=== PATIENT | male | born 1965 | race Caucasian/White ===

== ENCOUNTER 2024-01-19 14:28 | Outpatient (CLI) | payer OTHER, SELFPAY ==
--- NOTE | 2024-01-19 14:30 | ECG_ITS ---
SEE SCANNED COPY FOR CONFIRMED REPORT. MTDD
== END 2024-01-19 14:29 | disposition home or self-care (01) ==
LOC: ANHSURGERY 14:31
PROVIDERS: PCP Family Medicine; Visit Provider Surgery
DX: I25.10 Atherosclerotic heart disease of native coronary artery without angina pectoris (principal); Z72.0 Tobacco use
CPT/HCPCS: 93005

== ENCOUNTER 2024-01-22 00:54 | Day surgery (SDC) | payer OTHER, SELFPAY ==
[2024-01-19 10:35] VITALS: BMI 34.2
--- NOTE | 2024-01-19 10:36 | PC.NURSE ---
Report to the Outpatient Waiting Room, entrance under the green pavilion located off [facility], at time _1000_ on date _[id number]_. Planned Procedure Time: _1200_. Time changes happen often and if your time is changed the preop area will call you the afternoon before. - You and your visitor will be asked to self-screen and do not enter if you have any COVID symptoms. - A mask is optional within the hospital at this time. Patients may have clear liquids (water, carbonated beverages, clear teas, apple juice) until 3 hours prior to surgery with a maximum of 20 ounces. - No food from midnight until time of surgery Take the following medications with a SIP of water the morning of surgery: __None DO NOT STOP ANY OF YOUR OTHER PRESCRIPTION MEDICATIONS PRIOR TO SURGERY ?EXCEPT THE FOLLOWING Medications to discontinue per physician None Date to take last dose Please no make-up, nail kyrgyz, hairspray, perfume, deodorant, or body powder the day of surgery. No jewelry (including any body piercings) or valuables the day of surgery, leave them at home. Please take a shower or bath the night before, or the morning of, surgery with an antibacterial soap. Wear comfortable, loose fitting clothing. - Jewelry must be removed prior to entering the operating room. Rings and piercings that are not removed may be cut off. - The hospital will not accept responsibility for valuables. - Please leave all valuables, including medications, at home the day of surgery. If you are going home after surgery, a licensed commercial front load driver must drive you home. - NO public transportation without another adult if you receive anesthesia. - We recommend that an adult stay with you for 24 hours following discharge. - We also recommend that you do not drive, make important decision, drink alcoholic beverages, or take any drugs that were not prescribed by your health care provider for at least 24 hours after your discharge time. Follow any additional instructions given to you from your surgeon. If you or anyone in your household have experienced Covid symptoms in the past week, please notify your surgeon or the nurse liaison at the phone number below for possible testing. Telephone instructions given to _Melvina__and asked if any additional questions and then verbalized understanding. Patient advised to call surgeon office or pre surgery nurse liaison [phone] if any additional questions.
[2024-01-22] VITALS (8 sets, daily range): BP systolic 114–159; BP diastolic 66–95; PULSE 86–98; RESP 16–20; TEMP 36.1; O2SAT 94–98; BMI 34.1
[2024-01-22] MEDS: LACTATED RINGERS 1,000 ML 30 ML IV CONT ×2 (10:35→13:13)
[2024-01-22] MEDS: ACETAMINOPHEN 500 MG TABLET 1000 MG PO (10:42)
[2024-01-22] MEDS: KETOROLAC 15 MG/ML VIAL (*BKC) IV PUSH (10:43)
--- NOTE | 2024-01-22 11:28 | P.PNAN_ITS ---
Anes - Initial Pre Proc Eval Procedure: Operation Date: 01/22/24 12:00 Proposed Procedures p Open Recurrent Left Inguinal Hernia Repair with Mesh - Ki Jaramillo DO Date/Time: 01/22/24 11:28 Surgeon: Ki Jaramillo DO Pre Op Diagnosis: Recurrent Lt Ing Hernia Patient Data Age: 59 Gender: M Height: 1.73 m Weight: 101.8 kg Last Vital Signs Temp 36.1 C L 01/22/24 10:16 Pulse 98 01/22/24 10:16 Resp 20 01/22/24 10:16 BP 159/91 H 01/22/24 10:16 Pulse Ox 96 01/22/24 10:16 O2 Del Method Room Air 01/22/24 10:16 Allergies Allergy/AdvReac Type Severity Reaction Status Date / Time ciprofloxacin Allergy Severe Hives Verified 01/22/24 10:48 cephalexin Allergy Intermediate Hives Verified 01/22/24 10:48 Home Medications Medication Instructions Recorded Confirmed Type albuterol sulfate 2.5 mg/0.5 mL 2.5 mg inhalation Q20M 12/08/23 01/19/24 History solution for nebulization nitroglycerin 0.4 mg sublingual 0.4 mg sublingual Q5M PRN Chest 12/08/23 12/14/23 History tablet (Nitrostat) Pain atorvastatin 80 mg tablet 80 mg PO DAILY 01/19/24 01/19/24 History Patient hx anesthesia problems: none Family hx anesthesia problems: none Results Review: All pre-operative results and documents have been reviewed as part of the pre- operative evaluation. [facility] Past Medical History Medical History COPD (chronic obstructive pulmonary disease) Heart disease High cholesterol History of [place] (myocardial infarction) Kidney stones Surgical History Surgical History H/O carpal tunnel repair H/O heart artery stent x2 H/O left inguinal hernia repair 2013 [place], [place] H/O umbilical hernia repair Family History Family History Other Cancer Heart disease Social History Social History Smoking packs per day: 1 Smoking cigarettes per day: 20.0 Years smoked: 40 Smoking pack-years: 40.00 Smoking status: Current every day smoker Tobacco type: cigarettes Alcohol intake: never Substance use type: marijuana Other substance usage details: very little, weekend thing. 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 Informed Consent: The patient's anesthetic plan and its attendant risks and benefits were discussed with the patient/family/POA. Questions were solicited and answers provided to the satisfaction of the patient/family/POA.
--- NOTE | 2024-01-22 11:30 | PM.IMHP ---
H&P: HPI History of Present Illness Date/Time: 01/22/24 11:30 Chief Complaint: Recurrent LIH Narrative: Layo presents today for open recurrent left inguinal hernia repair with mesh. He reports no changes since last seen in office. Review of Systems Review of Systems: All systems reviewed & are unremarkable except as noted in HPI and below Constitutional: Constitutional: Denies chills, Denies fever(s), Denies headache(s) and Denies weight loss Eyes: Eyes: Denies change in vision ENT: Denies dizziness, Denies headache(s), Denies neck mass and Denies throat swelling Cardiovascular: Cardiovascular: Denies chest pain, Denies lightheadedness and Denies dyspnea Respiratory: Respiratory: Denies cough, Denies dyspnea and Denies wheezing Gastrointestinal: Gastrointestinal: Denies abdominal pain, Denies change in bowel habits, Denies nausea and Denies vomiting Genitourinary: Genitourinary: Denies hematuria and Denies dysuria Musculoskeletal: Musculoskeletal: Reports as per HPI Integumentary/Breasts: Skin/Breast: Reports as per HPI Neurologic: Denies dizziness and Denies headache(s) Allergic/Immunologic: Allergic/Immunologic: Denies throat swelling and Denies wheezing [facility] Past Medical History Medical History COPD (chronic obstructive pulmonary disease) Heart disease High cholesterol History of [place] (myocardial infarction) Kidney stones Surgical History Surgical History H/O carpal tunnel repair H/O heart artery stent x2 H/O left inguinal hernia repair 2013 [place], [place] H/O umbilical hernia repair Family History Family History Other Cancer Heart disease Social History Social History Smoking packs per day: 1 Smoking cigarettes per day: 20.0 Years smoked: 40 Smoking pack-years: 40.00 Smoking status: Current every day smoker Tobacco type: cigarettes Alcohol intake: never Substance use type: marijuana Other substance usage details: very little, weekend thing. 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 Spiritual care concerns: No Meds Home Medications and Allergies Home Medications Medication Instructions Recorded Confirmed Type albuterol sulfate 2.5 mg/0.5 mL 2.5 mg inhalation Q20M 12/08/23 01/19/24 History solution for nebulization nitroglycerin 0.4 mg sublingual 0.4 mg sublingual Q5M PRN Chest 12/08/23 12/14/23 History tablet (Nitrostat) Pain atorvastatin 80 mg tablet 80 mg PO DAILY 01/19/24 01/19/24 History Allergies Allergy/AdvReac Type Severity Reaction Status Date / Time ciprofloxacin Allergy Severe Hives Verified 01/22/24 10:48 cephalexin Allergy Intermediate Hives Verified 01/22/24 10:48 Vital Signs Vital Signs - 24 hr 01/22/24 10:16 Temperature 36.1 C L Pulse Rate 98 Respiratory Rate 20 Blood Pressure 159/91 H Pulse Oximetry 96 Oxygen Delivery Room Air Exam Const: General: no acute distress and alert Orientation/consciousness: patient oriented x3 HENMT: Head: normocephalic and atraumatic Ears: hearing grossly normal bilaterally Face/Nose/Sinus: Normal nares present Mouth: Yes Normal oral and palatal mucosa present Eyes: Periorbital: periorbital findings normal Sclera: sclerae normal EOM: EOMs intact bilaterally Neck: Neck: normal visual inspection, no lymphadenopathy and trachea midline Chest: Chest palpation & inspection: normal inspection of the chest Resp: Effort & Inspection: normal respiratory effort Auscultation: clear to auscultation bilaterally Cardio: Jugular venous distension: no JVD Rate: regular rate Rhythm: regular rhythm Heart sounds: S1 normal heart sound present and S2 normal heart sound present Peripheral
--- NOTE | 2024-01-22 11:32 | WPDHPUPDATE1 ---
History and Physical Update Update Date/Time: 01/22/24 11:32 History and Physical has been reviewed, including an updated exam of the patient. There are NO changes in the patient's condition. Risks, benefits, and alternatives have been discussed and questions answered. Patient agrees to proceed with procedure.
[2024-01-22] MEDS: CLINDAMYCIN 900 MG/D5W 50 ML 900 MG/50 ML PIGGYBACK 50 MG IVPB (11:55)
[2024-01-22] MEDS: BUPIVACAINE/EPINEPHRINE 0.5% 50 ML VIAL 30 ML INFILTRATE (12:18)
--- NOTE | 2024-01-22 13:14 | W.PM.PROC2 ---
Procedure Note - Detailed Date of Procedure 01/22/24 Pre-op Diagnosis Recurrent left inguinal hernia Post-op Diagnosis Same (Recurrent direct left inguinal hernia) Procedure Performed Open recurrent left inguinal hernia repair with mesh Surgeon Ki Jaramillo, DO Anesthesia General and Local (0.5% bupivacaine with epinephrine) Indications This is a 59-year-old man who presented with a recurrent left inguinal hernia. He has a history of a laparoscopic left inguinal hernia repair in 2013. He had been doing well after this surgery up until a few years ago where he began noticing a recurrent bulge. This was not causing him any symptoms at the time, but over the last couple months he has noticed some increasing pain in the left groin region. A recurrent left inguinal hernia was palpable on exam. Discussions were made with the patient about treatment options and decision was made to proceed with open recurrent left inguinal hernia repair with mesh. Findings Open recurrent left inguinal hernia repair with mesh was performed. The patient was found to have a recurrent direct left inguinal hernia. He was also noted to have a small cord lipoma. The lipoma was excised and the tissue was cleared around the direct inguinal defect. A large Ultrapro hernia system mesh was placed with the internal segment going through the direct defect and laying out deep to the direct defect. The anterior segment of the mesh was placed along the inguinal floor and around the spermatic cord. No other abnormalities were noted. No specimens were obtained for pathology. Description of Procedure Procedure as well as risks, benefits, and alternatives were discussed with the patient. Written consent was obtained and placed in chart prior to procedure. Patient was brought back to surgical suite. He was placed supine on operating table. Time-out was done to confirm patient and procedure. He was then intubated by the anesthesia department. His left lower quadrant and groin region was prepped and draped in sterile fashion using chlorhexidine prep. 0.5% bupivacaine with epinephrine was infiltrated locally around the skin for the incision. A 6 cm oblique incision was made in the left lower quadrant using a 10 blade scalpel. Electrocautery was used for hemostasis and for dissection through Krystal's fascia. The external oblique aponeurosis was then identified and cleared down to the external ring. An incision was then made on the external oblique aponeuroses this was extended down to the external ring. Curved hemostats were placed on the edges of the external oblique aponeurosis and the cord contents were then carefully identified and the spermatic cord was then isolated using a [place] drain. I then carefully inspected the spermatic cord and did not identify a hernia defect going along the cord. There was a cord lipoma that was excised with electrocautery and discarded. I then inspected just medial to this area and identified a direct inguinal defect. The hernia sac was carefully freed up from the surrounding inguinal floor using electrocautery and then the hernia sac was dunked back into the abdominal cavity. I then finger swept underneath this region to clear the peritoneum around the hernia defect. Once this was cleared I was then able to ensure that there was adequate space for mesh placement. I then used an ultra Pro hernia system mesh and placed the internal portion directly through the direct inguinal defect. This was carefully laid out flat deep to the defect. Then oriented the anterior portion of the mesh along the inguinal floor going down towards the pubic bone. The anterior portion of the mesh was then secured at the pubic bone using a 2-0 Prolene simple interrupted suture. Then continued to secure the mesh along the inguinal floor circumferentially using 2-0 Prolene simple interrupted sutures. A slit was cut in the mesh along the lateral segment so that it could be
== END 2024-01-22 15:05 | disposition home or self-care (01) ==
PROVIDERS: PCP Family Medicine; Visit Provider Surgery
PROC: (CPT 49520; principal; 2024-01-22 12:00)
DX: K40.91 Unilateral inguinal hernia, without obstruction or gangrene, recurrent (principal); D17.6 Benign lipomatous neoplasm of spermatic cord; J44.9 Chronic obstructive pulmonary disease, unspecified; I51.9 Heart disease, unspecified; E78.00 Pure hypercholesterolemia, unspecified; I25.2 Old myocardial infarction; Z79.51 Long term (current) use of inhaled steroids; Z95.5 Presence of coronary angioplasty implant and graft; F17.210 Nicotine dependence, cigarettes, uncomplicated; E66.9 Obesity, unspecified; Z68.34 Body mass index [BMI] 34.0-34.9, adult
CPT/HCPCS: 49520; A9270; C1781; J1100; J1885; J2405; J2704; J3010; J7120

== ENCOUNTER 2024-07-05 14:25 | Outpatient (CLI) | payer OTHER, SELFPAY ==
--- NOTE | ~2024-07-05 | CT_ITS ---
EXAMINATION:CT lung screening DATE: 07/05/2024 15:02 INDICATION: Personal history of nicotine dependence. Current smoker with 41 pack year history. TECHNIQUE: Computed tomography (CT) of the chest was performed without intravenous contrast. Automate d exposure control and iterative reconstruction technique were employed. The dose-length product (DLP ) was 220.07 mGy-cm. COMPARISON: None. FINDINGS: There is mild emphysema. A calcified left lung nodule is consistent with old granulomatous disease. There is mild atelectasis bilaterally. No pleural effusion. The heart size is normal. There are coronary artery calcifications. No pericardial effusion. There is mild thoracic spondylosis. Ther e is mild chronic anterior wedging of multiple mid thoracic vertebral bodies. IMPRESSION: 1. Lung-RADS category 1: Negative. Continue annual screening with noncontrast low-dose chest CT in 12 months. Reviewed, dictated and finalized at location A. IMPRESSION: 1. Lung-RADS category 1: Negative. Continue annual screening with noncontrast l ow-dose chest CT in 12 months.
[2024-07-05 15:10] LABS: Basophils Absolute Auto 0.1 K/mm3 (0.0-0.1); Basophils Percent Auto 1.2 % (0.2-1.2); Eosinophils Absolute Auto 0.3 K/mm3 (0-0.3); Eosinophils Percent Auto 3.6 % (0-4.4); Hematocrit 49.8 % (42.0-52.0); Hemoglobin 16.9 g/dL (14.0-18.0); Immature Granulocyte Absolute 0.18 K/mm3 (0.00-0.031); Immature Granulocyte Percent A 1.9 % (0-0.5); Lymphocytes Absolute Auto 2.57 K/mm3 (0.9-3.2); Lymphocytes Percent Auto 27.4 % (18.3-44.2); Mean Corpuscular HGB Conc 33.9 g/dl (32-36); Mean Corpuscular Hemoglobin 30.2 pg (26-34); Mean Corpuscular Volume 89.1 fl (80-100); Mean Platelet Volume 10.4 fl (7.4-10.4); Monocytes Absolute Auto 0.6 K/mm3 (0.1-0.6); Monocytes Percent Auto 5.9 % (2.6-8.5); Neutrophils Absolute Auto 5.6 K/mm3 (1.3-6.7); Platelet Count Result 183 k/mm3 (150-375); Red Blood Count 5.59 M/mm3 (4.6-6.20); Red Cell Distribution Width 14.1 % (11.5-14.5); White Blood Count 9.4 K/mm3 (4.5-10.0)
== END 2024-07-05 14:26 | disposition home or self-care (01) ==
LOC: ANHIMG 14:29
PROVIDERS: PCP Family Medicine; Visit Provider Family Medicine
DX: Z12.2 Encounter for screening for malignant neoplasm of respiratory organs (principal); Z87.891 Personal history of nicotine dependence; R73.09 Other abnormal glucose; R79.89 Other specified abnormal findings of blood chemistry
CPT/HCPCS: 36415; 71271; 83036; 85025

== ENCOUNTER 2025-08-18 16:12 | Emergency (ER) | payer OTHER, SELFPAY ==
[2025-08-18 16:12] VITALS: PULSE 71
--- NOTE | 2025-08-18 16:13 | ECG_ITS ---
Test Date: 2025-08-18 16:17:04 Measurements Intervals [place] Rate: 89 P: 65 AL: 144 QRS: 42 QRSD: 102 T: 68 QT: 332 QTc: 405 Interpretive Statements SINUS RHYTHM ST ELEVATION, CONSIDER INFERIOR INJURY [MARKED ST ELEVATION W/O NORMALLY INFLECTED T-WAVE IN II/aVF] ACUTE MD ABNORMAL ECG No previous ECG available for comparison Electronically Signed On 08-19-2025 08:13:52 MECHANICAL DOOR REPAIRER by Darrel Barker M.D.
--- OUTSIDE RECORDS SUMMARY | 2025-08-18 16:14 | XMS_ITS | Clinical Summary ---
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 Gender Identity Not on file Sexual Orientation Not on file Plan of Treatment Health Maintenance Due Date Last Done Comments Colorectal Cancer Screening Colonoscopy (10 Years) 1967 Annual Physical 1970 Hepatitis C 1985 DTaP, Tdap and Td Vaccines ( 1 - Tdap) 1986 Hepatitis B Vaccines (1 of 3 - 19+ 3-dose series) 1986 Pneumococcal Vaccine: 50+ Years (1 of 1 - PCV) 2017 Zoster Vaccines (1 of 2) 2017 COVID-19 Vaccine (3 - 2024-2 6 season) 2025 01/04/2021, 12/07/2020 Influenza Adult (#1) 2025 06/25/2015, 06/26/2014, 06/29/2013 Hepatitis A Vaccines Aged Out No long er eligible based on patient's age to complete this topic Meningococcal B Vaccine Aged Out No l onger eligible based on patient's age to complete this topic Meningococcal Vaccine Aged Out No attila leslie eligible based on patient's age to complete this topic RSV Immunizations Under 20 Months Aged Out No longer eligible b ased on patient's age to complete this topic Insurance [facility] [place] [address] Care Teams Trauma Doctor Relationship Specialty Start Date End Date Ben Cast MD [address] [place] [phone] PCP - General FAMILY PRACTICE 08/21/23
--- OUTSIDE RECORDS SUMMARY | 2025-08-18 16:14 | XMS_ITS | Clinical Summary ---
Author Organization [facility] [address] Address [address] [place] [address] Care Team Providers Care Instructional Technology Coach Name Role Phone Ben Cast MD Primary Care Provider Allergies Active Allergy Reactions Criticality Noted Date Comments Ciprofloxacin Anaphylaxis High Medications nitroglycerin (NITROSTAT) 0.[address] 1 tablet by sublingual route at the 1st sign of attack; may repeat every 5 min until relief; if pain persists after 3 tablets in 15 min, prompt medical attention is recommended 0 0 7 Active furosemide (LASIX) 20 mg tablet Take 1 tablet (20 mg total) by mouth daily 30 tablet [address] (PROTONIX) 40 mg EC tablet Take 1 tablet (40 mg total) by mouth daily 30 tablet 5 0 Active Additional Information Patient not taking.Reported on 04/25/2022 atorvastatin (LIPITOR) 80 mg tablet Take 1 tablet (80 mg total) by mouth nightly 90 tablet 2 Active albuterol HFA (PROVENTIL HFA,VENTOLIN HFA,PROAIR HFA) 90 mcg/actuation inhaler 2 Active aspirin (Enteric Coated Aspirin) 81 mg enteric coated tabletIndicatio ns:Coronary artery disease involving [place] coronary artery of [place] heart without angina pectoris Take 1 tablet (81 mg total) by mouth daily 2 Active Active Problems Problem Noted Date Diagnosed Date Atypical chest pain 10/27/2018 Tussive syncope 01/28/2018 Nocturnal cough 08/10/2017 Chest pain on exertion 02/05/2017 Overview (02/13/2017): Chest pain on exertion Coronary artery disease of n ative artery of [place] heart with stable angina pectoris 11/12/2016 Overview (01/01/2017): Coronary artery disease involving [place] coronary artery of [place] heart without angina pectoris Essential hypertension 11/12/2016 Overview (01/01/2017): Essential hypertension Tobacco use 11/12/2016 Overview (01/01/2017): Tobacco abuse Erectile dysfunction due to arterial insufficien cy 11/12/2016 Overview (01/01/2017): Erectile dysfunction due to arterial insufficiency Nonsustained ventricular tachycardia 11/12/2016 Overview (01/01/2017): Nonsustained ventricular tachycardia Medical History Medical History Date Comments Myocardial infarction (HCC) Myoc ardial infarction Hypercholesterolemia High choles terol Hypertension Hypertension Family History Medical History Relation Name Comments Other Brother 2 Alive and well; Heart attack Father 2 Myocardial infa rction; Cause of : Myocardial infarction Cancer Mother 2 Cancer, unknown ; Cause of : Cancer, unknown Hyperlipidemia Other Family histor y of Hyperlipidemia; Other Sister 2 Alive and well; Relation Name Status Comments Brother 1 Alive Brother 2 Father 1 (Age 60) Father 2 Mother 1 (Age 59) Mother 2 Other Sister 1 Alive Sister 2 Social History Tobacco Use Types Packs/Day Years Used Date Smoking Tobacco: Heavy Smoker Cigarettes Smokeless Tobacco: Never Comments:Smoking History Pac ks/day: 1 Packs Alcohol Use Standard Drinks/Week Comments No 0 (1 standard drink = 0.6 oz pur e alcohol) Sex and Gender Information Value Date Recorded Sex Assigned at Not on file 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 Gender Identity Not on file Sexual Orientation Not on file Last Filed Vital Signs Vital Sign Reading Time Taken Comments Blood Pressure 134/86 04/25/2022 9:56 AM CDT Pulse 110 04/25/2022 9:56 AM CDT Temperature - - Respiratory Rate - - Oxygen Saturation 94% 04/25/2022 9:56 AM CDT Inhaled Oxygen Concentration - - Weight 97.5 kg (215 lb) 04/25/2022 9:56 AM CDT Height 170.2 cm (5' 7) 04/25/2022 9:56 AM CDT Body Mass Index 33.67 04/25/2022 9:56 AM CDT Plan of Treatment Not on file Insurance [facility] Care Teams Instructional Technology Coach Relationship Specialty Start Date End Date Ben Cast MD PCP - General 12/19/16
[2025-08-18 16:15] VITALS: BP 119/79; PULSE 100; PULSE 71; RESP 16; RESP 20; TEMP 35.5; O2SAT 94; O2SAT 96
[2025-08-18] MEDS: MORPHINE SULFATE (*CRX) 4 MG/ML INJ IV PUSH (16:24)
[2025-08-18] MEDS: ASPIRIN 81 MG CHEWABLE TABLET 324 MG PO (16:24)
[2025-08-18 16:27] VITALS: PULSE 69; RESP 14; O2SAT 95
[2025-08-18 16:30] VITALS: BP 78/58; PULSE 65; RESP 14; O2SAT 95
[2025-08-18 16:31] VITALS: PULSE 61; RESP 12
[2025-08-18 16:32] VITALS: BP 84/63; PULSE 64; RESP 14; O2SAT 94
[2025-08-18] MEDS: SODIUM CHLORIDE 0.9% IV 1,000 ML 999 ML IV CONT (16:35)
[2025-08-18 16:37] LABS: Hematocrit 50.5 % (40.0-54.0); Hemoglobin 17.3 g/dL (14.0-18.0); Immature Granulocyte Percent A 0.3 % (0.0-0.0); Lymphocytes Absolute Auto 4.62 K/mm3 (1.10-4.50); Mean Corpuscular HGB Conc 34.3 g/dL (32-36); Mean Corpuscular Hemoglobin 29.2 pg (27.0-31.0); Mean Corpuscular Volume 85.3 fL (78.0-102.0); Nucleated Red Blood Cells Absolute Auto 0.00 K/mm3 (0.00-0.00); Nucleated Red Blood Cells Perc 0.0 % (0-0.0); Platelet Count Result 201 K/mm3 (150-420); Red Blood Count 5.92 M/mm3 (4.70-6.10); White Blood Count 12.2 K/mm3 (4.8-10.8)
[2025-08-18] MEDS: HEPARIN SOD/D5W 100 UNITS/ML 25,000 UNITS/250 ML BAG 9 UNITS IV CONT (16:39)
[2025-08-18 16:45] LABS: INR 1.0; Partial Thromboplastin Time 27.1 Sec (23.9-30.70); Prothrombin Time 10.6 Seconds (9.50-12.1)
[2025-08-18 16:46] LABS: Alanine Aminotransferase 45 U/L (6-50); Albumin Level 4.6 g/dL (3.5-5.1); Alkaline Phosphatase 76 U/L (38-126); Anion Gap 11 mmol/L (4-12); Aspartate Amino Transferase 48 U/L (17-59); Bilirubin,Total 0.7 mg/dL (0.2-1.3); Blood Urea Nitrogen 19 mg/dL (9-20); Calcium 9.5 mg/dL (8.4-10.2); Carbon Dioxide 25 mmol/L (22-30); Chloride 102 mmol/L (98-107); Estimated CRCL calculation 69 ml/min; Estimated Glomerular Filt Rate > 60; Glucose 125 mg/dL (65-110); Osmolality Calculated 289 mOsm/kg (285-295); Potassium 3.2 mmol/L (3.4-5.0); Sodium 138 mmol/L (137-145); Total Protein 6.8 g/dL (6.3-8.2)
--- NOTE | 2025-08-18 16:47 | ED_ITS ---
HPI - Chest Pain General Chief Complaint: Chest Pain Stated Complaint: chest pain Time Seen by Provider: 08/18/25 16:19 Source: patient and family Mode of arrival: ambulatory Limitations: no limitations History of Present Illness HPI narrative: Patient is a 60-year-old male with chest pain all day today presents to the emergency room towards the end of the day per family request. Patient presents niño-colored and Cruz colored and diaphoretic. Patient was having midsternal pressure. He took 2 nitroglycerin prior to arrival. MD complaint: chest pain, chest heaviness and chest discomfort Pertinent past history: coronary artery disease (Patient has 2 stents 10 years ago with IN), prior IN and other (Hyperlipidemia) Onset (ago): day(s) (1) Timing of current episode: constant Prior episodes: No Onset: during exertion Pain location: substernal and parasternal Pain radiation: none Severity: moderate Pain scale (0-10): 7 Quality: tightness, heaviness and similar to prior IN Relieving factors: nothing Exacerbating factors: exertion Context: other (Patient has coronary artery disease and not taking any medications presents with chest pain and diaphoretic and pale color/niño) Associated symptoms: other (None) Treatment prior to arrival: nitroglycerin (X2 prior to arrival) Risk Factors Coronary artery disease risk factors: smoking history and hyperlipidemia Thoracic aortic dissection risk factors: none Related Data Home Medications ?Medication ?Instructions ?Recorded ?Confirmed ?Last Taken ?Type nitroglycerin 0.4 mg sublingual 0.4 mg sublingual Q5M PRN Chest 12/08/23 08/18/25 08/18/25 History tablet (Nitrostat) Pain Allergies Allergy/AdvReac Type Severity Reaction Status Date / Time ciprofloxacin Allergy Severe Hives Verified 08/18/25 16:38 cephalexin Allergy Intermediate Hives Verified 08/18/25 16:38 Review of Systems 2 Review of Systems: All systems reviewed & are unremarkable except as noted in HPI and below Constitutional: Constitutional: Reports no additional constitutional complaints Eyes: Eyes: Reports no additional eye complaints ENT: Reports system reviewed and no additional complaints, except as documented Cardiovascular: Cardiovascular: Reports no additional cardiovascular complaints Respiratory: Respiratory: Reports no additional respiratory complaints Gastrointestinal: Gastrointestinal: Reports no additional gastrointestinal complaints Genitourinary: Genitourinary: Reports no additional male genitourinary complaints Musculoskeletal: Musculoskeletal: Reports no additional musculoskeletal complaints Integumentary/Breasts: Skin/Breast: Reports system reviewed and no additional complaints, except as docu Neurologic: Reports system reviewed and no additional complaints, except as documented Psychiatric: Psychiatric: Reports no additional psychiatric complaints Endocrine: Endocrine: Reports no additional endocrine complaints Hematologic/Lymphatic: Hematologic/Lymphatic: Reports no additional hematologic/lymphatic complaints Allergic/Immunologic: Allergic/Immunologic: Reports no additional allergic/immunologic complaints PMFSH Past Medical History Medical History COPD (chronic obstructive pulmonary disease) High cholesterol Heart disease History of [place] (myocardial infarction) Kidney stones Surgical History Surgical History H/O heart artery stent x2 H/O carpal tunnel repair H/O umbilical hernia repair H/O left inguinal hernia repair 2013 [place], [place] Open recurrent left inguinal hernia repair with mesh 01/22/24 Family History Family History Other Cancer Heart disease Social History Social History Smoking packs per day: 1 Smoking cigarettes per day: 20.0 Years smoked: 40 Smoking pack-years: 40.00 Smoking status: Current every day smoker Tobacco type: cigarettes Alcohol intake: never Substance use type: marijuana Other substance usage details: very little, weekend thing. 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 Spiritual care concerns: No Exam 2 Const: General: diaphoretic and ill appearing Nutritional Appearance: well nourished Orientation/consciousness: patient oriented x3 Limitations: no limitations HENMT: Head: normal to inspection Ears: external ears normal F jose/Nose/Sinus: Normal external nose present Eyes: Conjunctivae: conjunctivae normal Pupils: Equal, round and reactive pupils present EOM: EOMs intact bilaterally Neck: Neck: normal visual inspection Chest: Chest palpation & inspection: normal inspection of the chest Resp: Effort & Inspection: normal respiratory effort and not labored A uscultation: clear to auscultation bilaterally and no crackles Cardio: Rate: regular rate Rhythm: regular rhythm Heart sounds: no murmurs GI: Inspection: non-distended GI Palp: Yes Soft to palpation and No Tenderness to palpation present (GI) Auscultation: normal bowel sounds : General: Yes bladder normal to palpation Back/Spine/Pelvis: Back: no CVA tenderness Skin: General skin exam: No normal color, no jaundice and pallor Rashes: no rashes Wounds: no wounds Neuro: General: patient oriented x3, moves all extremities and no meningeal signs Extrem: General: normal to inspection Psych: Mental Status: mental status grossly normal Affect: normal affect Attitude: cooperative Course Vital Signs Vital signs: Vital Signs Pulse Rate 71 08/18/25 16:12 Temperature 35.5 C L 08/18/25 16:15 Pulse Rate 71 08/18/25 16:15 Respiratory Rate 20 08/18/25 16:15 Blood Pressure 119/79 08/18/25 16:15 Pulse Oximetry 94 08/18/25 16:15 Oxygen Delivery Nasal Cannula 08/18/25 16:15 Oxygen Flow Rate 2 08/18/25 16:15 MDM - Chest Pain MDM Narrative Medical decision making narrative: Patient is a 60-year-old male with chest pain and heaviness with diaphoresis for the past day. EKG shows STEMI. Inferior STEMI. Patient transferred immediately. [facility]. Discussed with embossing toolsetter. Aspirin heparin started. Morphine given. IV fluid given. Slight hypotension appreciated and EMS will give epinephrine dose pulsing as needed. He will present to ER to ER. Lab Data Attestation: I reviewed the patient's lab results. 08/18/25 16:20 08/18/25 16:20 Labs: Lab Results 08/18/25 08/18/25 Range/Units 16:20 16:41 WBC 12.2 H Pending (4.8-10.8) K/mm3 RBC 5.92 Pending (4.70-6.10) M/mm3 Hgb 17.3 Pending (14.0-18.0) g/dL Hct 50.5 Pending (40.0-54.0) % MCV 85.3 Pending (78.0-102.0) fL MCH 29.2 Pending (27.0-31.0) pg MCHC 34.3 Pending (32-36) g/dL RDW 14.6 H Pending (11.6-14.4) % Plt Count 201 Pending (150-420) K/mm3 MPV 10.6 Pending (8.7-11.0) fl Immature Gran % (Auto) 0.3 H Pending (0.0-0.0) % Neut % (Auto) 47.4 L Pending (50.0-70.0) % Lymph % (Auto) 37.8 Pending (18.0-42.0) % Dewey % (Auto) 7.9 Pending (2.0-11.0) % Eos % (Auto) 5.3 Pending (1.0-6.0) % Baso % (Auto) 1.3 H Pending (0.0-1.0) % Lymph # (Auto) 4.62 H Pending (1.10-4.50) K/mm3 Dewey # (Auto) 0.96 H Pending (0.10-0.90) K/mm3 Eos # (Auto) 0.65 H Pending (0.02-0.50) K/mm3 Baso # (Auto) 0.16 H Pending (0.00-0.10) K/mm3 Abs Immat Gran (auto) 0.04 H Pending (0.00-0.00) K/mm3 Absolute Neuts (auto) 5.78 Pending (1.70-7.20) K/mm3 Absolute Nucleated RBC 0.00 Pending (0.00-0.00) K/mm3 Nucleated RBC % 0.0 Pending (0-0.0) % PT 10.6 (9.50-12.1) Seconds INR 1.0 APTT 27.1 (23.9-30.70) Sec Sodium 138 (137-145) mmol/L Potassium 3.2 L (3.4-5.0) mmol/L Chloride 102 (98-107) mmol/L Carbon Dioxide 25 (22-30) mmol/L Anion Gap 11 (4-12) mmol/L BUN 19 (9-20) mg/dL Creatinine 1.00 (0.7-1.3) mg/dL Estim Creat Clear Calc 69 ml/min Estimated GFR > 60 (59 - ) Glucose 125 H (65-110) mg/dL Calculated Osmolality 289 (285-295) mOsm/kg Calcium 9.5 (8.4-10.2) mg/dL Magnesium Pending Total Bilirubin 0.7 (0.2-1.3) mg/dL AST 48 (17-59) U/L ALT 45 (6-50) U/L Alkaline Phosphatase 76 (38-126) U/L Troponin I Pending NT-Pro-B Natriuret Pep Pending Total Protein 6.8 (6.3-8.2) g/dL Albumin 4.6 (3.5-5.1) g/dL Imaging Data Attestation: I personally reviewed and interpreted this imaging study as follows: Radiologist's impression: Unable to do in period of time ECG Data EKG #1: Attestation: I personally reviewed and interpreted this ECG as follows: ECG completion date: 08/18/25 ECG completion time: 16:54 EKG Interpretation: normal rate, sinus rhythm, no ectopy, ST elevation (Inferior), normal QRS, normal QT and NL axis Critical Care Time Critical Care Time Critical Care Time: Yes Total Critical Care Time: 30 Discharge Plan Discharge Clinical Impression: ST elevation (STEMI) myocardial infarction Qualifiers: Involved coronary artery: unspecified coronary artery Qualified Code(s): I21.3 - ST elevation (STEMI) myocardial infarction of unspecified site Patient Disposition: Acute Care Hospital Condition: Guarded Prognosis Patient Language: Burkinan Prescriptions: No Action nitroglycerin [Nitrostat] 0.4 mg tablet, sublingual 0.4 mg sublingual Q5M PRN (Reason: Chest Pain) Rx Instructions: do not exceed 3 doses per episode Has never used. Follow-up/Referrals: Segun,MD Ben [Primary Care Provider, Family Practice] Time of Disposition: 16:22
[2025-08-18 16:57] LABS: NT Pro B Type Natriuretic Pept < 20 pg/mL (19.9-100); Troponin I < 0.012 ng/mL (0.000-0.034)
[2025-08-18 17:00] LABS: Magnesium 1.8 mg/dL (1.6-2.3)
== END 2025-08-18 16:42 | disposition short-term general hospital (02) ==
PROVIDERS: Emergency Provider Emergency Medicine; PCP Family Medicine
DX: I21.3 ST elevation (STEMI) myocardial infarction of unspecified site (principal); I25.10 Atherosclerotic heart disease of native coronary artery without angina pectoris; I25.2 Old myocardial infarction; E78.5 Hyperlipidemia, unspecified; J44.9 Chronic obstructive pulmonary disease, unspecified; F17.210 Nicotine dependence, cigarettes, uncomplicated
CPT/HCPCS: 36415; 80053; 83735; 83880; 84484; 85025; 85610; 85730; 93005; 96374; 96375; 99285; A9270; J1644; J2270; J7030

== ENCOUNTER 2025-08-18 17:12 | Inpatient (IN) | payer OTHER, SELFPAY ==
[2025-08-18] VITALS (15 sets, daily range): BP systolic 90–128; BP diastolic 51–99; PULSE 79–111; RESP 13–21; TEMP 36.3–36.6; O2SAT 93–97; BMI 28.9
--- OUTSIDE RECORDS SUMMARY | 2025-08-18 17:19 | XMS_ITS | Clinical Summary ---
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
--- OUTSIDE RECORDS SUMMARY | 2025-08-18 17:19 | XMS_ITS | Clinical Summary ---
Author Organization [facility] [address] Address [address] [place] [address] Care Team Providers Care Color Weigher Name Role Phone Ben Cast MD Primary [...] enteric coated tabletIndicatio ns:Coronary artery disease involving [place] coronary artery of [place] heart without angina pectoris Take 1 tablet (81 mg total) by mouth daily 2 Active Active Problems Problem Noted Date Diagnosed Date Atypical chest pain 10/27/2018 Tussive syncope 01/28/2018 Nocturnal cough 08/10/2017 Chest pain on exertion 02/05/2017 Overview (02/13/2017): Chest pain on exertion Coronary artery disease of n ative artery of [place] heart with stable angina pectoris 11/12/2016 Overview (01/01/2017): Coronary artery disease involving [place] tribe coronary artery of [place] tribe heart without angina pectoris Essential hypertension 11/12/2016 [...] on file Legal Sex Male 4:08 PM [employer] Gender Identity Not on file Sexual Orientation [...] Plan of Treatment Not on file Insurance [facility] [place] [phone] Care Teams Color Weigher Relationship Specialty Start Date End Date Ben Cast MD PCP - General 12/19/16
--- NOTE | 2025-08-18 17:22 | WPDMODSED ---
Moderate Sedation Note-Pt Data Patient Data Allergies Allergy/AdvReac Type Severity Reaction Status Date / Time ciprofloxacin Allergy Severe Hives Verified 08/18/25 16:38 cephalexin Allergy Intermediate Hives Verified 08/18/25 16:38 Home Medications ?Medication ?Instructions ?Recorded ?Confirmed ?Type nitroglycerin 0.4 mg sublingual 0.4 mg sublingual Q5M PRN Chest 12/08/23 08/18/25 History tablet (Nitrostat) Pain Sedation/Anesthesia: No previous sedation/anesthesia problems (including family history). [facility] Past Medical History Medical History COPD (chronic obstructive pulmonary disease) High cholesterol Heart disease History of [place] (myocardial infarction) Kidney stones Surgical History Surgical History H/O heart artery stent x2 H/O carpal tunnel repair H/O umbilical hernia repair H/O left inguinal hernia repair 2013 [place], [place] Open recurrent left inguinal hernia repair with mesh 01/22/24 Family History Family History Other Cancer Heart disease Social History Social History Smoking packs per day: 1 Smoking cigarettes per day: 20.0 Years smoked: 40 Smoking pack-years: 40.00 Smoking status: Current every day smoker Tobacco type: cigarettes Alcohol intake: never Substance use type: marijuana Other substance usage details: very little, weekend thing. 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 Patient re-evaluated immediately prior to sedation.
--- NOTE | 2025-08-18 17:22 | WPDHPUPDATE1 ---
History and Physical Update Update Date/Time: 08/18/25 17:22 History and Physical has been reviewed, including an updated exam of the patient. There are NO changes in the patient's condition. Risks, benefits, and alternatives have been discussed and questions answered. Patient agrees to proceed with procedure.
--- NOTE | 2025-08-18 17:22 | WPDCARDPROC ---
Cardiac Cath Procedure Note Date of procedure:: 08/18/25 Performing physician:: Rosetta Oakley MD Indication:: CATHETERIZATION LABORATORY REPORT Procedure Date: 08/18/2025 Anesthesia: Versed and Fentanyl were ordered and given in my presence at 5:35 p.m., procedure ended at 6:52 p.m.. Supervision of nurse monitored moderate sedation with Versed and Fentanyl was provided for 77 minutes. Versed 1.5 mg Fentanyl 150 mcg Pre-op Diagnosis: Inferior STEMI CAD status post PCI to distal RCA in the past Post-op Diagnosis: Inferior STEMI status post PCI to 100% occluded distal RCA and 80% stenosis in mid RCA CAD status post PCI to distal RCA in the past Hypotension resolved with IV fluids Bradycardia resolved with 0.5 mg IV atropine Procedure(s): Ultrasound-guided right common femoral artery access Left heart catheterization with coronary angiography IVUS guided PCI to 100% occluded distal RCA and 80% stenosis in mid RCA Access Site: Right common femoral artery Brief History and Clinical Indications: All risks, benefits and alternatives to left heart catheterization with or without percutaneous coronary intervention was discussed at length with the patient. Risk of complications including but not limited to bleeding, infection, arrhythmia, stroke, worsening kidney function, blood loss, groin hematoma, limb loss, emergency coronary artery bypass grafting, and even were discussed with the patient and all questions were answered. The patient understood and wished to proceed. Time out called, patient name, date of , medical record number, allergies, procedure performed, identify Chimney Builder Brick, patient and staff member concurred with accurate data, procedure carried on. Findings: LEFT HEART CATHETERIZATION FINDINGS: 1. Left main: There is no left main. The LAD and LCX have separate ostia. 2. Left anterior descending: The LAD and the diagonal branches have mild luminal irregularities without any significant obstructive angiographic disease. 3. Left circumflex: The mid left circumflex artery has 40-50% stenosis. The marginal branches have mild luminal irregularities without any significant obstructive angiographic disease. 4. Right coronary artery: The proximal RCA has 40% stenosis, mid RCA has 80% stenosis, and distal RCA has 100% thrombotic occlusion. The distal RCA is the culprit vessel. The RCA is the dominant vessel. 5. Left ventricle: A. End-diastolic pressure mmHg. B. LV gram deferred. C. No significant gradient across aortic valve on catheter pullback. 6. Opening AO pressure 114/83/90 8 mm Hg and closing AO pressure 111/70/101 mm Hg Description of Procedure: Informed consent signed and placed in the chart. Patient transferred to medical laboratory technical officer room. Prepped and draped in usual sterile fashion. 2% lidocaine in right groin area. Micropuncture needle used to access right common femoral artery with Seldinger technique under fluoroscopic guidance. J wire advanced, micropuncture cannula placed. Right iliofemoral angiogram performed, access confirmed and micropuncture cannula exchanged for 6-FR sheath. The left circumflex artery and left anterior descending artery have separate ostia. There is no left main. Five [place] JL 4 diagnostic catheter engaged left circumflex Coronary Artery. Five [place] JL 3.5 diagnostic catheter engaged left anterior descending artery. 6 [place] JR4 guide catheter engaged Right Coronary Artery. Multiple orthogonal angiogram obtained and reviewed We did not cross the aortic valve. LV angiogram was deferred. Procedure Description for PCI: Heparin was used for anticoagulation (ACT maintained above 250) Patient loaded with heparin at 70 units/kg. Six F JR4 guide catheter was used to intubate the RCA 0.014 runthrough coronary wire was passed in to the distal RCA The the mid and distal RCA lesions were pre-dilated with a 2.0 mm x 15 mm balloon inflated to high CHERI At this time there was some hypotension and bradycardia which resolved with IV fluids and 0.5 mg atrial pain respectively An [place] [employer] IVUS catheter was advanced into the mid RCA and pullback was performed. The iris catheter could not be advanced beyond the mid RCA lesion due to severe stenosis and tortuosity in the vessel A 2.5 mm X 15 mm Medtronic kamilah [place] BO was successfully deployed into the distal RCA and a 3.0 mm X 22 mm Medtronics kamilah [place] BO was deployed in the mid RCA The stents were post-dilated with a 3.0 mm X 12 mm NC balloon inflated to high CHERI Intracoronary NTG was administered Follow-up angiograms showed an excellent result Coronary wire and guide-catheter were removed Pre-procedure - CRAIG 3 flow Post-procedure - CRAIG 3 flow No angiographic complications identified. Hemostasis achieved with 6 [place] Angio-Seal. Assessment: Inferior STEMI status post PPCI to 100% thrombotic occlusion in the distal RCA with a 2.5 mm X 15 mm Medtronic kamilah [place] BO and PCI to 80% stenosis in the mid RCA with a 3.0 mm X 22 mm Medtronics kamilah [place] BO post-dilated with a 3.0 mm X 12 mm NC balloon inflated to high CHERI Hypotension- resolved with IV fluids Bradycardia with heart rates down to the 30s during reperfusion status post a troponin 0.5 mg IV X 1 with improvement in heart rates to the 80s-90s Post Operative Condition: Stable No significant blood loss Disposition: Floor/Home Plan: The patient will be monitored in the recovery area. Ticagrelor 180 mg p.o. loaded in the lab. Continue DAPT with aspirin 81 mg p.o. daily and ticagrelor 90 mg p.o. b.i.d. for 1 year followed by ASA indefinitely. Atorvastatin 80 mg daily. Metoprolol 12.5 mg p.o. b.i.d. if SBP greater than 120 mm Hg. TTE in a.m.. Monitor on telemetry. Check and replace electrolytes to keep potassium 4 and magnesium greater than 2. Check renal function in a.m. IV fluids normal saline at 100 mL/hour for 1 L. Manager Reporting about smoking cessation. Continue aggressive medical therapy and risk factor modification. Rosetta Oakley MD, MS, FACC, [facility] Interventional Cardiology
--- NOTE | 2025-08-18 17:23 | PM.CNCAR ---
Assessment and Plan Assessment and plan (1) ST elevation (STEMI) myocardial infarction: Qualifiers: Involved coronary artery: unspecified coronary artery Qualified Code(s): I21.3 - ST elevation (STEMI) myocardial infarction of unspecified site Code(s): I21.3 - ST elevation (STEMI) myocardial infarction of unspecified site Status: Acute (2) CAD (coronary artery disease): Qualifiers: Coronary Disease-Associated Artery/Lesion type: [place] artery [place] vs. transplanted heart: [place] heart Associated angina: without angina Qualified Code(s): I25.10 - Atherosclerotic heart disease of [place] coronary artery without angina pectoris Code(s): I25.10 - Atherosclerotic heart disease of [place] coronary artery without angina pectoris Status: Acute (3) Tobacco abuse: Code(s): Z72.0 - Tobacco use Status: Acute Plan Assessment: Inferior STEMI CAD status post PCI to distal RCA in the past Current tobacco use Hyperlipidemia Plan: He was given heparin bolus and started on heparin drip at outside hospital ER and transferred here. Proceed with emergent cardiac catheterization for primary PCI TTE Atorvastatin 80 mg daily Aspirin 81 mg daily. Will load 2nd antiplatelet agent in the lab Monitor on telemetry Metoprolol 25 mg p.o. b.i.d. if SBP greater than 120 mm Hg Check and replace electrolytes to keep potassium greater than 4 and magnesium greater than 2 Further recommendations after cardiac catheterization History of Present Illness History of Present Illness Consult date/time: 08/18/25 17:23 Reason For Visit: Stemi Narrative: 60-year-old male with history of CAD status post PCI to distal RCA in the past, COPD, current tobacco use, hyperlipidemia, renal stones presents with chief complaints of chest pain that started this evening. Patient presented to [facility] [place] where an EKG showed inferior ST elevations. Patient was then transferred to [facility] for primary PCI. Patient has chest pain of intensity 7/10 at the time he arrived at [facility]. There was no radiation of pain to his neck, arm, or jaw. No associated diaphoresis, shortness of breath, sweating. No dizziness, lightheadedness, leg swelling, recent weight gain, orthopnea, PND, presyncope, syncope, palpitations. Review of Systems Review of Systems: A complete review of systems was performed and negative other than those mentioned in the HPI. [facility] Past Medical History Medical History COPD (chronic obstructive pulmonary disease) High cholesterol Heart disease History of [place] (myocardial infarction) Kidney stones Surgical History Surgical History H/O heart artery stent x2 H/O carpal tunnel repair H/O umbilical hernia repair H/O left inguinal hernia repair 2013 [place], [place] Open recurrent left inguinal hernia repair with mesh 01/22/24 Family History Family History Other Cancer Heart disease Social History Social History Smoking packs per day: 1 Smoking cigarettes per day: 20.0 Years smoked: 40 Smoking pack-years: 40.00 Smoking status: Current every day smoker Tobacco type: cigarettes Alcohol intake: never Substance use type: marijuana Other substance usage details: very little, weekend thing. 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 Spiritual care concerns: No Meds Home Medications and Allergies Home Medications ?Medication ?Instructions ?Recorded ?Confirmed ?Type nitroglycerin 0.4 mg sublingual 0.4 mg sublingual Q5M PRN Chest 12/08/23 08/18/25 History tablet (Nitrostat) Pain Allergies Allergy/AdvReac Type Severity Reaction Status Date / Time ciprofloxacin Allergy Severe Hives Verified 08/18/25 16:38 cephalexin Allergy Intermediate Hives Verified 08/18/25 16:38 Exam Narrative: General: Alert oriented x3, no acute distress Neck: Supple, no JVD Chest: Bilaterally clear to auscultation, no rales or rhonchi Cardiac: S1, S2 +, regular rate, regular rhythm, no murmurs or rubs Extremities: No pedal edema, no skin rash Neurologic: Alert and oriented x3, no focal neurological deficits
--- NOTE | 2025-08-18 18:45 | SUR.OPER ---
cannot get into intra-op due to meditech timing out before being able to log previous RN out of charting system. Case end time: 1851 Out of room time:1914 Report called to CASH REGISTER BALANCER: Isaac ROTHMAN
--- NOTE | 2025-08-18 19:34 | ADMGEN ---
This patient, Layo Hein, was admitted to Intensive Care Unit-8. Patient/family oriented to hospital policies and general routines including ID bracelet, bed and alarms, visiting hours, pain management, procedures, bathroom and other care routines, personal items, smoking policy, room service/diet, and visiting hours. Information on how to activate the Rapid Response Team has been discussed. Patient/Family are encouraged to report perceived risks to care and to ask questions if they do not understand what they are told or what they should do.
[2025-08-18] MEDS: SODIUM CHLORIDE 0.9% IV 1,000 ML 125 ML IV CONT (21:06)
[2025-08-18 21:26] LABS: MRSA (PCR) NOT DETECTED (NOT DETECTE)
[2025-08-18] MEDS: NICOTINE (*PBKC) 21 MG PATCH 1 PATCH TRANSDERM (21:51)
[2025-08-19] VITALS (22 sets, daily range): BP systolic 90–136; BP diastolic 51–87; PULSE 79–106; RESP 16–27; TEMP 36.4–36.9; O2SAT 92–97
--- NOTE | 2025-08-19 | ECHO_ITS ---
Patient Info Name: Layo Hein Age: 60 years : 1965 Gender: Male Ht: 68 in Wt: 190 lbs BSA: 2.05 m2 HR: 86 bpm Heart Rhythm: Sinus Rhythm Technical Quality: Good Exam Date: 08/19/2025 9:28 AM Patient Status: I Admit Date: 08/18/2025 Exam Type: CA echo dop color flow w con Complete two-dimensional, color flow and Doppler transthoracic echocardiogram is performed with contrast to opacify the left ventricle and to improve the deliniation of the left ventricle endocardial borders. Pie Cutter: Yoly Ely Attending Provider: Rosetta Oakley MD Contrast/Agitated Saline Contrast/Ag. Saline: Definity Amount: 2.00 ml Summary 1. Normal left ventricular size with inferior hypokinesia, overall normal ejection fraction. 2. Mildly sclerotic aortic valve with good leaflet separation. 3. Mild MR. Left Ventricle Left ventricular chamber dimension is normal. Left ventricular systolic function is normal, estimated at 50-55. The left ventricular diastolic function is grade I diastolic dysfunction. Right Ventricle Right ventricular chamber dimension is normal. Left Atria Left atrial chamber dimension is normal. Right Atria Right atrial chamber dimension is normal. Aortic Valve The aortic valve is trileaflet. There is mild aortic valve sclerosis. Pulmonic Valve The pulmonic valve is not well visualized. Mitral Valve The mitral valve has normal leaflets. There is mild mitral valve regurgitation. Tricuspid Valve The tricuspid valve leaflets are normal. Pericardium/Pleural The pericardium appears normal. Aorta The aortic root size at the sinus of Valsalva is normal. Left Ventricular Outflow Tract Name Value Normal LVOT 2D LVOT Diameter 2.0 cm LVOT Doppler LVOT Peak Velocity 116 cm/s LVOT Peak Gradient 5 mmHg LVOT Mean Gradient 3 mmHg LVOT VTI 22 cm LVOT Stroke Volume 71 ml LVOT CO 6.1 l/min LVOT CI 2.9 l/min/m2 Pulmonic Valve Name Value Normal RVOT Doppler RVOT Peak Velocity 56 cm/s RVOT Peak Gradient 1 mmHg PV Doppler PV Peak Velocity 77 cm/s PV Peak Gradient 2 mmHg Mitral Valve Name Value Normal MV Diastolic Function MV E Peak Velocity 68 cm/s MV A Peak Velocity 90 cm/s MV E/A 0.8 MV Decel Time (PW) 158 ms MV Annular TDI MV E/e' (Septal) 7.9 MV E/e' (Lateral) 8.8 MV E/e' (Average) 8.3 Tricuspid Valve Name Value Normal TV Regurgitation Doppler TR Peak Velocity 263 cm/s TR Peak Gradient 28 mmHg Aortic Valve Name Value Normal AV Doppler AV Peak Velocity 142 cm/s AV Peak Gradient 8 mmHg AV Area (Cont Eq Deejay) 2.7 cm2 AV DI (Deejay) 0.81 AV Regurgitation 2D LVOT Area 3.3 cm2 Ventricles Name Value Normal LV Dimensions 2D/MM IVS Diastolic Thickness (2D) 0.5 cm 0.6-1.0 LVID Diastole (2D) 5.7 cm 4.2-5.8 LVIW Diastolic Thickness (2D) 0.7 cm 0.6-1.0 LVID Systole (2D) 4.2 cm 2.5-4.0 LVOT Diameter 2.0 cm LV Mass (2D Cubed) 129.65 g 88.00-224.00 LV Mass Index (2D Cubed) 63 g/m2 49-115 Relative Wall Thickness (2D) 0.26 <=0.42 LV Fractional Shortening/Ejection Fraction 2D/MM LV Fractional Shortening (2D) 26 % 25-43 LV EF (2D Teichjorgez) 50 % LV Diastolic Volume (4C MOD) 134 ml LV EF (4C MOD) 46 % LV Diastolic Volume (2C MOD) 197 ml LV EF (2C MOD) 48 % LV Diastolic Volume (BP MOD) 160 ml 62-150 LV Diastolic Volume Index (BP MOD) 78 ml/m2 34-74 LV Systolic Volume (BP MOD) 86 ml 21-61 LV Systolic Volume Index (BP MOD) 42 ml/m2 11-31 LV EF (BP MOD) 46 % 52-72 LV Diastolic Length (4C) 9.0 cm LV Systolic Length (4C) 7.4 cm LV Stroke Volume (4C MOD) 62 ml Atria Name Value Normal LA Dimensions LA Volume (4C A-L) 26 ml LA Volume (BP A-L) 35 ml RA Dimensions RA Systolic Major Snyder Length (4C) 5.2 cm 2.1-2.7 RA Area (4C) 18.2 cm2 <=18.0 Report Signatures
[2025-08-19 03:58] LABS: Hematocrit 44.4 % (42.0-52.0); Hemoglobin 15.3 g/dL (14.0-18.0); Immature Granulocyte Percent A 0.3 % (0-0.5); Lymphocytes Absolute Auto 2.69 K/mm3 (0.9-3.2); Mean Corpuscular HGB Conc 34.5 g/dl (32-36); Mean Corpuscular Hemoglobin 29.5 pg (26-34); Mean Corpuscular Volume 85.7 fl (80-100); Nucleated Red Blood Cells Absolute Auto 0.000 K/mm3 (0.0-0.012); Nucleated Red Blood Cells Perc 0.0 % (0.0-0.2); Platelet Count Result 142 k/mm3 (150-375); Red Blood Count 5.18 M/mm3 (4.6-6.20); White Blood Count 10.2 K/mm3 (4.5-10.0)
[2025-08-19 04:20] LABS: INR 1.1; Prothrombin Time 13.8 Seconds (11.1-14.7)
[2025-08-19 04:21] LABS: Partial Thromboplastin Time 32.3 Seconds (22.3-36.8)
[2025-08-19 04:31] LABS: Alanine Aminotransferase 37 U/L (6-50); Albumin Level 3.2 g/dL (3.5-5.1); Alkaline Phosphatase 57 U/L (38-126); Anion Gap 1 mmol/L (4-12); Aspartate Amino Transferase 84 U/L (17-59); Bilirubin,Total 0.4 mg/dL (0.2-1.3); Blood Urea Nitrogen 16 mg/dL (9-20); Calcium 8.5 mg/dL (8.4-10.2); Carbon Dioxide 28 mmol/L (22-30); Chloride 105 mmol/L (98-107); Estimated CRCL calculation 83 ml/min; Estimated Glomerular Filt Rate > 60; Glucose 99 mg/dL (65-110); Magnesium 1.7 mg/dL (1.6-2.3); Potassium 3.8 mmol/L (3.4-5.0); Sodium 134 mmol/L (137-145); Total Protein 5.4 g/dL (6.3-8.2)
[2025-08-19] MEDS: NICOTINE (*PBKC) 21 MG PATCH 1 PATCH TRANSDERM (08:39)
[2025-08-19] MEDS: TICAGRELOR 90 MG TABLET PO ×2 (08:39→20:05)
[2025-08-19] MEDS: ATORVASTATIN 40 MG TABLET PO (08:39)
--- NOTE | 2025-08-19 09:26 | PM.PNCARD ---
Progress Note: A&P Assessment and Plan (1) CAD (coronary artery disease): Qualifiers: Coronary Disease-Associated Artery/Lesion type: [place] artery [place] vs. transplanted heart: [place] heart Associated angina: without angina Qualified Code(s): I25.10 - Atherosclerotic heart disease of [place] coronary artery without angina pectoris Code(s): I25.10 - Atherosclerotic heart disease of [place] coronary artery without angina pectoris Status: Acute Plan 60-year-old man with coronary disease presenting with acute inferior infarction, total occlusion of the distal RCA was found angiographically he received 2 drug-eluting stents to the right coronary with a very good angiographic result. Patient states the same artery was treated 9 years ago in the setting of [place] as well. He has not followed up with us in the office for a number of years and was on no medication at the time of this presentation. He also has continued to smoke. Explained to the patient the importance of smoking cessation as well as adherence to follow-up. I will prescribe aspirin today and start metoprolol succinate at low dosage. Will draw troponin level this morning following his emergency PCI last evening. He is stable enough to move out of ICU. Anticipate discharge in 24-48 hours if he remains stable. Darrel Barker MD [facility] Subjective Date/time seen: Date of service: 08/19/25 09:26 Interval history: Follow-up visit in this 60-year-old man with: Coronary artery disease presenting yesterday evening with acute inferior ST-elevation [place]. Patient underwent successful emergency revascularization receiving 2 drug-eluting stents to the distal and mid RCA. Normal antegrade flow was restored and he has done well following his procedure. Patient feels well and is asymptomatic this morning. Exam Const: General: comfortable and no acute distress HENMT: Face/Nose/Sinus: Normal nares present Eyes: Sclera: sclerae normal Neck: Neck: supple and no JVD Resp: Effort & Inspection: normal respiratory effort Auscultation: clear to auscultation bilaterally Cardio: Rate: regular rate Rhythm: regular rhythm Other: No murmur no gallop Skin: General skin exam: normal color Neuro: Other: Alert and oriented x3 Extrem: Other: Normal perfusion, no edema Objective Data Vital Signs Vital Signs: Vital Signs - 24 hr 08/18/25 19:30 08/18/25 19:34 08/18/25 20:00 Temperature 36.3 C L 36.3 C L 36.4 C L Pulse Rate 111 H 111 H 109 H Pulse Rate [Bilateral Pedal (Dorsalis Pedis) Palpation] Respiratory Rate 21 H 21 H 21 H Blood Pressure 111/89 111/89 120/80 Pulse Oximetry 97 97 93 Oxygen Delivery 08/18/25 20:00 08/18/25 20:03 08/18/25 20:10 Temperature Pulse Rate 98 104 H Pulse Rate [Bilateral Pedal (Dorsalis Pedis) Palpation] 104 H Respiratory Rate 21 H Blood Pressure 120/80 Pulse Oximetry 97 Oxygen Delivery Room Air 08/18/25 20:18 08/18/25 20:33 08/18/25 20:48 Temperature Pulse Rate 105 H 100 102 H Pulse Rate [Bilateral Pedal (Dorsalis Pedis) Palpation] Respiratory Rate 15 13 19 Blood Pressure 118/88 116/88 119/93 H Pulse Oximetry 93 95 95 Oxygen Delivery 08/18/25 21:00 08/18/25 21:18 08/18/25 21:48 Temperature Pulse Rate 102 H 104 H 93 Pulse Rate [Bilateral Pedal (Dorsalis Pedis) Palpation] Respiratory Rate 20 17 21 H Blood Pressure 115/96 H 128/99 H 111/74 Pulse Oximetry 97 96 96 Oxygen Delivery 08/18/25 22:00 08/18/25 22:00 08/18/25 22:48 Temperature Pulse Rate 100 100 94 Pulse Rate [Bilateral Pedal (Dorsalis Pedis) Palpation] Respiratory Rate 21 H 20 Blood Pressure 111/74 111/74 Pulse Oximetry 95 95 Oxygen Delivery 08/18/25 23:00 08/18/25 23:40 08/18/25 23:40 Temperature Pulse Rate 79 79 79 Pulse Rate [Bilateral Pedal (Dorsalis Pedis) Palpation] Respiratory Rate 19 18 18 Blood Pressure 101/75 101/75 Pulse Oximetry 93 93 93 Oxygen Delivery Room Air 08/18/25 23:57 08/19/25 00:00 08/19/25 00:48 Temperature 36.6 C Pulse Rate 79 80 80 Pulse Rate [Bilateral Pedal (Dorsalis Pedis) Palpation] Respiratory Rate 21 H 22 H Blood Pressure 90/51 L 90/51 L Pulse Oximetry 95 92 Oxygen Delivery 08/19/25 01:00 08/19/25 01:48 08/19/25 02:00 Temperature Pulse Rate 82 86 79 Pulse Rate [Bilateral Pedal (Dorsalis Pedis) Palpation] Respiratory Rate 17 17 Blood Pressure 100/76 100/76 Pulse Oximetry 94 93 Oxygen Delivery 08/19/25 02:00 08/19/25 03:00 08/19/25 04:00 Temperature 36.5 C Pulse Rate 79 96 80 Pulse Rate [Bilateral Pedal (Dorsalis Pedis) Palpation] Respiratory Rate 19 16 25 H Blood Pressure 96/62 L 111/83 108/86 Pulse Oximetry 93 96 96 Oxygen Delivery 08/19/25 04:00 08/19/25 04:15 08/19/25 05:00 Temperature Pulse Rate 80 96 98 Pulse Rate [Bilateral Pedal (Dorsalis Pedis) Palpation] Respiratory Rate 16 20 Blood Pressure 119/73 Pulse Oximetry 96 95 Oxygen Delivery Room Air 08/19/25 06:00 08/19/25 06:00 08/19/25 07:00 Temperature 36.8 C Pulse Rate 106 H 91 80 Pulse Rate [Bilateral Pedal (Dorsalis Pedis) Palpation] Respiratory Rate 20 25 H Blood Pressure 117/80 115/71 Pulse Oximetry 97 94 Oxygen Delivery 08/19/25 08:00 08/19/25 08:00 08/19/25 08:00 Temperature 36.8 C Pulse Rate 80 80 92 Pulse Rate [Bilateral Pedal (Dorsalis Pedis) Palpation] Respiratory Rate 25 H 27 H Blood Pressure 125/78 Pulse Oximetry 94 94 Oxygen Delivery Room Air 08/19/25 09:00 Temperature 36.8 C Pulse Rate 98 Pulse Rate [Bilateral Pedal (Dorsalis Pedis) Palpation] Respiratory Rate 17 Blood Pressure Pulse Oximetry Oxygen Delivery Intake/Output Intake/Output: Intake & Output 08/16/25 08/17/25 08/18/25 08/19/25 23:59 23:59 23:59 23:59 Intake Total 1520 Output Total 650 Balance 870 Meds/Results Medications: Active Medications Generic Name Dose Route Start Last Admin Trade Name Freq PRN Reason Stop Dose Admin Aspirin 81 mg 08/19/25 09:25 Aspirin 81 Mg Enteric Tablet PO QAM WAYNE Atorvastatin Calcium 40 mg 08/19/25 09:00 08/19/25 08:39 Atorvastatin 40 Mg Tablet PO 40 mg DAILY WAYNE Administration Lidocaine HCl 20 ml 08/18/25 19:52 Lidocaine 1% Local Inj 20 Ml Vial .ROUTE 08/18/25 19:53 .STK-MED ONE Metoprolol Succinate 25 mg 08/19/25 09:30 Metoprolol Succinate Ext Rel 25 Mg Tabcr PO QAM WAYNE Nicotine 1 patch 08/18/25 21:35 08/19/25 08:39 Nicotine (*Pbkc) 21 Mg Patch TRANSDERM 1 patch DAILY WAYNE Administration Nitroglycerin 0.4 mg 08/18/25 20:51 Nitroglycerin Sl 0.4 Mg Tablet SUBLINGUAL Q5MIN PRN Chest Pain Ondansetron HCl 4 mg 08/18/25 20:51 Ondansetron Hcl Odt 4 Mg Tablet PO 08/19/25 20:50 Q4-6H PRN Nausea Perflutren Lipid Microsphere 0 ml 08/18/25 20:55 Perflutren Lipid Microspheres 1.5 Ml Vial Diluted To 10 Ml Total Volume IV PUSH 08/21/25 20:55 ONCE PRN adequate visualization Protocol Ticagrelor 90 mg 08/19/25 09:00 08/19/25 08:39 Ticagrelor 90 Mg Tablet PO 90 mg Q12H WAYNE Administration Labs Labs: Laboratory Results - last 24 hr 08/18/25 08/19/25 19:55 03:44 WBC 10.2 H RBC 5.18 Hgb 15.3 Hct 44.4 MCV 85.7 MCH 29.5 MCHC 34.5 RDW 14.8 H Plt Count 142 L MPV 9.9 Immature Gran % (Auto) 0.3 Neut % (Auto) 59.4 Lymph % (Auto) 26.4 [place] % (Auto) 8.3 Eos % (Auto) 4.7 H Baso % (Auto) 0.9 Lymph # (Auto) 2.69 [place] # (Auto) 0.8 H Eos # (Auto) 0.5 H Baso # (Auto) 0.1 Abs Immat Gran (auto) 0.03 Absolute Neuts (auto) 6.1 Absolute Nucleated RBC 0.000 Nucleated RBC % 0.0 PT 13.8 INR 1.1 APTT 32.3 Sodium 134 L Potassium 3.8 Chloride 105 Carbon Dioxide 28 Anion Gap 1 L BUN 16 Creatinine 0.82 Estim Creat Clear Calc 83 Estimated GFR > 60 Glucose 99 Calcium 8.5 Phosphorus 3.9 Magnesium 1.7 Total Bilirubin 0.4 AST 84 H ALT 37 Alkaline Phosphatase 57 Total Protein 5.4 L Albumin 3.2 L Nasal MRSA (PCR) Not detected
[2025-08-19] MEDS: METOPROLOL SUCCINATE EXT REL 25 MG TABCR PO (09:59)
[2025-08-19] MEDS: ASPIRIN 81 MG ENTERIC TABLET PO (09:59)
[2025-08-19 10:50] LABS: Troponin I 13.000 ng/mL (0.000-0.034)
[2025-08-19] MEDS: PERFLUTREN LIPID MICROSPHERES 1.5 ML VIAL DILUTED TO 10 ML TOTAL VOLUME IV PUSH (11:34)
--- NOTE | 2025-08-19 11:34 | IVDEFINITY ---
Prior to administration of IV Definity the patient was educated on the risks and benefits of the imaging enhancing agent including potential adverse side effects. The patient verbalized understanding. Allergies were verified. No exclusion criteria were identified and at least one of the following inclusion criteria were met: 1) physician request, 2) patient technically difficult to image (per the [place] [employer] of Echocardiography guidelines of two or more segments not discernable within the apical view), or 3) questionable left ventricular function. ?
--- NOTE | 2025-08-19 11:55 | P.CONIN_ITS ---
Assessment and Plan Assessment and plan (1) ST elevation (STEMI) myocardial infarction: Qualifiers: Involved coronary artery: unspecified coronary artery Qualified Code(s): I21.3 - ST elevation (STEMI) myocardial infarction of unspecified site Code(s): I21.3 - ST elevation (STEMI) myocardial infarction of unspecified site Status: Inactive Assessment and Plan: 08/18: Present[place] the [place] at [place] [facility] [place] [facility] with complains of chest pain that started in the evening on the day of admission. EKG at the outside hospital showed inferior ST elevations, patient was transferred to [facility] for primary PCI. -patient was taken to the label tacker, was found to have 100% occlusion of distal RCA and 80% occlusion of mid RCA. Patient received 2 drug-eluting stents. LV gram was deferred -patient was started on aspirin, Brilinta, atorvastatin, metoprolol -cardiology following the patient close -echocardiogram has been ordered (2) Tobacco abuse: Code(s): Z72.0 - Tobacco use Status: Acute Assessment and Plan: Patient smokes 2 packs per day for roughly 45 year -I emphasized cessation of smoking, patient did comprehend. (3) COPD (chronic obstructive pulmonary disease): Qualifiers: COPD type: unspecified COPD Qualified Code(s): J44.9 - Chronic obstructive pulmonary disease, unspecified Code(s): J44.9 - Chronic obstructive pulmonary disease, unspecified Status: Acute Assessment and Plan: History of COPD, does not take any medications at home -if patient is short of breath or has wheezing will start MDI inhaler (4) Hyperlipidemia: Code(s): E78.5 - Hyperlipidemia, unspecified Status: Acute Assessment and Plan: Continue atorvastatin (5) CAD (coronary artery disease): Qualifiers: Coronary Disease-Associated Artery/Lesion type: [place] artery [place] vs. transplanted heart: [place] heart Associated angina: without angina Q ualified Code(s): I25.10 - Atherosclerotic heart disease of [place] coronary artery without angina pectoris Code(s): I25.10 - Atherosclerotic heart disease of [place] coronary artery without angina pectoris Status: Acute Assessment and Plan: History of coronary artery disease/[place] with BO x1 to the distal RCA approximately 9 years back Plan DVT prophylaxis: Status post cardiac catheterization Stress ulcer prophylaxis: Not indicated Nutrition: Heart healthy diet Code Status: Full code Critical Care Time Spent: 46 minute Discussed with cardiology Due to a high probability of clinically significant, life threatening deterioration, the patient required my highest level of preparedness to intervene emergently and I personally spent this critical care time directly and personally managing the patient. This critical care time included obtaining a history; examining the patient; pulse oximetry; ordering and review of studies; arranging urgent treatment with development of a management plan; evaluation of patient's response to treatment; frequent reassessment; and discussions with other providers. It was exclusive of separately billable procedures and treating other patients and teaching time. Please see Assessment and Plan section and the rest of the note for further information on patient assessment and treatment This dictation may have been done utilizing a voice recognition system. Attempts have been made to correct errors. However, there may be uncorrected grammatical, spelling, and recognitions errors present. Management Rep Consult Note Consult date: 08/19/25 Reason for consult: Chest pain, inferior STEMI status post PTCA/PCI with BO x2 to mid and distal RCA HPI: Layo Hein is a 60 year old male with past medical history of CAD status post PCI to distal RCA about 9 years ago, history of COPD, current tobacco use, hyperlipidemia, stop taking his atorvastatin since he is dieting and lost 40 lbs, history of renal stones presented the ED on 08/18/2025 with complains of chest pain that started in the evening of the day of admission. He initially presented the [facility] [place] [facility] where an EKG showed inferior ST elevation [place], was transferred to [facility] for primary PCI. Patient complained of chest pain 7/10 in intensity, denies any radiation to the neck arm or jaw. It was not associated with diaphoresis, shortness of breath, nausea, sweating. He was taken the cardiac label tacker, he had total occlusion of the distal RCA and was found angiogram of likely he received 2 drug-eluting stents to the right coronary with good angiographic result. Continues to smoke 2 packets per day for roughly 45 years. Patient was transfer the ICU postprocedure for further management Patient seen examined the ICU, for patient sitting on the couch, denies any chest pain, shortness with, abdominal pain, nausea, vomiting. Hemodynamically stable. States he feels good. Adequate urine output and afebrile. Review of Systems 2 Review of Systems: All systems reviewed & are unremarkable except as noted in HPI and below PMFSH Past Medical History Medical History COPD (chronic obstructive pulmonary disease) High cholesterol Heart disease History of [place] (myocardial infarction) Kidney stones Surgical History Surgical History H/O heart artery stent x2 H/O carpal tunnel repair H/O umbilical hernia repair H/O left inguinal hernia repair 2013 [place], [place] Open recurrent left inguinal hernia repair with mesh 01/22/24 Family History Family History (Updated 08/18/25 @ 19:37 by Isaac Diez RN) Mother Cancer Father Heart disease Social History Social History Smoking packs per day: 2 Smoking cigarettes per day: 40.0 Years smoked: 45 Smoking pack-years: 90.00 Smoking status: Current every day smoker Tobacco type: cigarettes Alcohol intake: never Substance use: current Substance use type: marijuana Other substance usage details: very little, weekend thing. 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[employer] Spiritual care concerns: No Meds Home Medications and Allergies Home Medications ?Medication ?Instructions ?Recorded ?Confirmed ?Type nitroglycerin 0.4 mg sublingual 0.4 mg sublingual Q5M PRN Chest 12/08/23 08/18/25 History tablet (Nitrostat) Pain atorvastatin 40 mg tablet (Lipitor) 40 mg PO DAILY 08/18/25 History Allergies Allergy/AdvReac Type Severity Reaction Status Date / Time ciprofloxacin Allergy Severe Hives Verified 08/18/25 16:38 Vital Signs Vital Signs - 24 hr 08/18/25 19:30 08/18/25 19:34 08/18/25 20:00 Temperature 97.3 F L 97.3 F L 97.5 F L Pulse Rate 111 H 111 H 109 H Pulse Rate [Bilateral Pedal (Dorsalis Pedis) Palpation] Respiratory Rate 21 H 21 H 21 H Blood Pressure 111/89 111/89 120/80 Pulse Oximetry 97 97 93 Oxygen Delivery 08/18/25 20:00 08/18/25 20:03 08/18/25 20:10 Temperature Pulse Rate 98 104 H Pulse Rate [Bilateral Pedal (Dorsalis Pedis) Palpation] 104 H Respiratory Rate 21 H Blood Pressure 120/80 Pulse Oximetry 97 Oxygen Delivery Room Air 08/18/25 20:18 08/18/25 20:33 08/18/25 20:48 Temperature Pulse Rate 105 H 100 102 H Pulse Rate [Bilateral Pedal (Dorsalis Pedis) Palpation] Respiratory Rate 15 13 19 Blood Pressure 118/88 116/88 119/93 H Pulse Oximetry 93 95 95 Oxygen Delivery 08/18/25 21:00 08/18/25 21:18 08/18/25 21:48 Temperature Pulse Rate 102 H 104 H 93 Pulse Rate [Bilateral Pedal (Dorsalis Pedis) Palpation] Respiratory Rate 20 17 21 H Blood Pressure 115/96 H 128/99 H 111/74 Pulse Oximetry 97 96 96 Oxygen Delivery 08/18/25 22:00 08/18/25 22:00 08/18/25 22:48 Temperature Pulse Rate 100 100 94 Pulse Rate [Bilateral Pedal (Dorsalis Pedis) Palpation] Respiratory Rate 21 H 20 Blood Pressure 111/74 111/74 Pulse Oximetry 95 95 Oxygen Delivery 08/18/25 23:00 08/18/25 23:40 08/18/25 23:40 Temperature Pulse Rate 79 79 79 Pulse Rate [Bilateral Pedal (Dorsalis Pedis) Palpation] Respiratory Rate 19 18 18 Blood Pressure 101/75 101/75 Pulse Oximetry 93 93 93 Oxygen Delivery Room Air 08/18/25 23:57 08/19/25 00:00 08/19/25 00:48 Temperature 97.8 F Pulse Rate 79 80 80 Pulse Rate [Bilateral Pedal (Dorsalis Pedis) Palpation] Respiratory Rate 21 H 22 H Blood Pressure 90/51 L 90/51 L Pulse Oximetry 95 92 Oxygen Delivery 08/19/25 01:00 08/19/25 01:48 08/19/25 02:00 Temperature Pulse Rate 82 86 79 Pulse Rate [Bilateral Pedal (Dorsalis Pedis) Palpation] Respiratory Rate 17 17 Blood Pressure 100/76 100/76 Pulse Oximetry 94 93 Oxygen Delivery 08/19/25 02:00 08/19/25 03:00 08/19/25 04:00 Temperature 97.7 F Pulse Rate 79 96 80 Pulse Rate [Bilateral Pedal (Dorsalis Pedis) Palpation] Respiratory Rate 19 16 25 H Blood Pressure 96/62 L 111/83 108/86 Pulse Oximetry 93 96 96 Oxygen Delivery 08/19/25 04:00 08/19/25 04:15 08/19/25 05:00 Temperature Pulse Rate 80 96 98 Pulse Rate [Bilateral Pedal (Dorsalis Pedis) Palpation] Respiratory Rate 16 20 Blood Pressure 119/73 Pulse Oximetry 96 95 Oxygen Delivery Room Air 08/19/25 06:00 08/19/25 06:00 08/19/25 07:00 Temperature 98.3 F Pulse Rate 106 H 91 80 Pulse Rate [Bilateral Pedal (Dorsalis Pedis) Palpation] Respiratory Rate 20 25 H Blood Pressure 117/80 115/71 Pulse Oximetry 97 94 Oxygen Delivery 08/19/25 08:00 08/19/25 08:00 08/19/25 08:00 Temperature 98.3 F Pulse Rate 80 80 92 Pulse Rate [Bilateral Pedal (Dorsalis Pedis) Palpation] Respiratory Rate 25 H 27 H Blood Pressure 125/78 Pulse Oximetry 94 94 Oxygen Delivery Room Air 08/19/25 09:00 08/19/25 09:59 08/19/25 10:00 Temperature 98.3 F Pulse Rate 98 92 87 Pulse Rate [Bilateral Pedal (Dorsalis Pedis) Palpation] Respiratory Rate 17 Blood Pressure Pulse Oximetry Oxygen Delivery 08/19/25 10:00 Temperature Pulse Rate 86 Pulse Rate [Bilateral Pedal (Dorsalis Pedis) Palpation] Respiratory Rate 25 H Blood Pressure Pulse Oximetry Oxygen Delivery Exam 2 Narrative: General: Pleasant gentleman in no acute distress HEENT:? Pupils equal reactive, sclera is clear Neck:? Supple Respiratory:? Clear to auscultation bilaterally, no wheezing, adequate air entry Cardiac:? S1-S2 normal, regular rate and rhythm Abdomen:? Soft, nontender, nondistended, normoactive bowel sound Extremities:? Right groin site without any ecchymoses or hematoma Neuro:? Patient awake, alert, oriented, nonfocal Skin:? No skin lesions noted Psych:? Normal mentation and affect Results Labs 08/19/25 03:44 11/29/25 03:44 Labs: Short CBC 08/19/25 Range/Units 03:44 WBC 10.2 H (4.5-10.0) K/mm3 Hgb 15.3 (14.0-18.0) g/dL Hct 44.4 (42.0-52.0) % Plt Count 142 L (150-375) k/mm3 BMP 08/19/25 03:44 Sodium 134 L Potassium 3.8 Chloride 105 Carbon Dioxide 28 BUN 16 Creatinine 0.82 Glucose 99 Calcium 8.5 Cardiac Enzymes 08/19/25 Range/Units 10:13 Troponin I 13.000 H* (0.000-0.034) ng/mL Liver Function 08/19/25 Range/Units 03:44 Total Bilirubin 0.4 (0.2-1.3) mg/dL AST 84 H (17-59) U/L ALT 37 (6-50) U/L Alkaline Phosphatase 57 (38-126) U/L Albumin 3.2 L (3.5-5.1) g/dL Quality If No VTE Prophylaxis Answer both mechanical and pharmacologic: Reason no mechanical VTE proph: low risk/not indicated (Status post cardiac catheterization) Hospitalist MIPS Advance Care Plan I have confirmed that the patient's Advanced Care Plan is present, code status is documented, or surrogate decision maker is listed in patient medical record.: Yes Medication Reconciliation I have utilized all available resources to obtain, update and review the patients current medications (includes all prescriptions, OTC, herbals, cannabis, and nutritional supplements).: Yes
--- NOTE | 2025-08-19 16:31 | PC.NURSE ---
1600-Patient transfered to room 201 by wheelchair. Report given to STEPHAN Camarena. All questions answered. Belongings sent with patient.
[2025-08-20] VITALS (9 sets, daily range): BP systolic 113–120; BP diastolic 72–87; PULSE 78–96; RESP 16–20; TEMP 36.3–36.7; O2SAT 93–96
[2025-08-20 04:59] LABS: Hematocrit 48.9 % (42.0-52.0); Hemoglobin 16.7 g/dL (14.0-18.0); Immature Granulocyte Percent A 0.4 % (0-0.5); Lymphocytes Absolute Auto 2.06 K/mm3 (0.9-3.2); Mean Corpuscular HGB Conc 34.2 g/dl (32-36); Mean Corpuscular Hemoglobin 29.2 pg (26-34); Mean Corpuscular Volume 85.6 fl (80-100); Nucleated Red Blood Cells Absolute Auto 0.000 K/mm3 (0.0-0.012); Nucleated Red Blood Cells Perc 0.0 % (0.0-0.2); Platelet Count Result 141 k/mm3 (150-375); Red Blood Count 5.71 M/mm3 (4.6-6.20); White Blood Count 7.6 K/mm3 (4.5-10.0)
[2025-08-20 05:14] LABS: Anion Gap 3 mmol/L (4-12); Blood Urea Nitrogen 11 mg/dL (9-20); Calcium 8.7 mg/dL (8.4-10.2); Carbon Dioxide 26 mmol/L (22-30); Chloride 108 mmol/L (98-107); Estimated CRCL calculation 89 ml/min; Estimated Glomerular Filt Rate > 60; Glucose 128 mg/dL (65-110); Magnesium 1.8 mg/dL (1.6-2.3); Potassium 3.7 mmol/L (3.4-5.0); Sodium 137 mmol/L (137-145)
[2025-08-20] MEDS: METOPROLOL SUCCINATE EXT REL 25 MG TABCR PO (09:08)
[2025-08-20] MEDS: TICAGRELOR 90 MG TABLET PO (09:08)
[2025-08-20] MEDS: ATORVASTATIN 40 MG TABLET PO (09:08)
[2025-08-20] MEDS: ASPIRIN 81 MG ENTERIC TABLET PO (09:08)
[2025-08-20] MEDS: NICOTINE (*PBKC) 21 MG PATCH 1 PATCH TRANSDERM (09:08)
--- NOTE | 2025-08-20 10:55 | PM.DS ---
DS: Admitting Diagnosis Discharge Date August 20, 2025 Admitting Diagnosis Inferior wall ST segment elevation WI DS: Summary Hospital Course Reason for hospitalization: ST segment elevation WI Hospital Course: Patient was brought to the hospital by ambulance from outside facility with chest pain and ECG evidence of acute inferior ST segment elevation [place]. 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 The right coronary occlusion was treated successfully with 2 drug-eluting stents. The details of this are in the separately dictated cardiac corn lab technician report. The angiographic result was excellent and the patient's clinical outcome was uncomplicated. He spent the 1st night in the ICU and had no complications he was moved out of the unit was prescribed dual anti-platelet therapy statin and beta-eva. Today he is ambulatory free of complaints and appears to be a good candidate for discharge. Time spent discussing smoking cessation with patient: more than 10 minutes Status at Discharge Functional status at discharge: independent ambulation Time Spent with Patient Time attestation: Total time spent providing and/or coordinating discharge services: Time spent: Less than 30 minutes Exam Const: General: comfortable and no acute distress HENMT: Mouth: Yes moist mucous membranes Eyes: Sclera: sclerae normal Neck: Neck: supple and no JVD Resp: Effort & Inspection: normal respiratory effort Auscultation: clear to auscultation bilaterally Cardio: Rate: regular rate Rhythm: regular rhythm Other: No murmur no gallop no rub GI: GI Palp: Yes Soft to palpation Auscultation: normal bowel sounds Skin: General skin exam: normal color Neuro: Other: Alert and oriented x3 Extrem: Other: No edema, good perfusion DS: Data Data Completed and Pending Labs on day of discharge: Labs from last 24 hours 08/20/25 03:49 WBC 7.6 RBC 5.71 Hgb 16.7 Hct 48.9 MCV 85.6 MCH 29.2 MCHC 34.2 RDW 15.2 H Plt Count 141 L MPV 10.7 H Immature Gran % (Auto) 0.4 Neut % (Auto) 52.7 Lymph % (Auto) 27.2 [place] % (Auto) 8.8 H Eos % (Auto) 9.8 H Baso % (Auto) 1.1 Lymph # (Auto) 2.06 [place] # (Auto) 0.7 H Eos # (Auto) 0.7 H Baso # (Auto) 0.1 Abs Immat Gran (auto) 0.03 Absolute Neuts (auto) 4.0 Absolute Nucleated RBC 0.000 Nucleated RBC % 0.0 Sodium 137 Potassium 3.7 Chloride 108 H Carbon Dioxide 26 Anion Gap 3 L BUN 11 D Creatinine 0.76 Estim Creat Clear Calc 89 Estimated GFR > 60 Glucose 128 H Calcium 8.7 Phosphorus 3.1 Magnesium 1.8 Discharge Plan Discharge Attending physician on discharge: Rosetta Oakley Discharging Clinician: Darrel Barker Anticipated Discharge Date/Time: 08/20/25 10:57 Patient Disposition: Home Activity: other - see discharge instructions Diet: heart healthy Patient Instructions: Antibiotic Form, Metoprolol (By mouth), Aspirin (By mouth), Ticagrelor (By mouth), Heart Attack (GEN), Heart Healthy Diet (GEN), Heart Catheterization (GEN), Blood Thinners (GEN), Left Heart Catheterization (GEN) Patient Language: [place] Stand Alone Forms: General Discharge Information Follow-up/Referrals: William Downs MD [Physician, Cardiology] Discharge Medications: New ticagrelor 90 mg Tablet 90 mg PO Q12H 30 Days Qty: 60 1RF nitroglycerin [Nitrostat] 0.4 mg Tablet, Sublingual 0.4 mg sublingual Q5MIN PRN (Reason: Chest Pain) Qty: 30 0RF nicotine [Nicoderm CQ] 21 mg/24 hr Patch 24 Hour 1 patch transdermal DAILY Qty: 30 0RF aspirin 81 mg Tablet,Delayed Release (Dr/Ec) 81 mg PO QAM Qty: 90 2RF metoprolol succinate [Toprol XL] 25 mg Tablet Extended Release 24 Hr 25 mg PO QAM Qty: 90 2RF Continued nitroglycerin [Nitrostat] 0.4 mg tablet, sublingual 0.4 mg sublingual Q5M PRN (Reason: Chest Pain) Qty: 30 2RF Rx Instructions: do not exceed 3 doses per episode Has never used. atorvastatin [Lipitor] 40 mg tablet 40 mg PO DAILY Qty: 90 2RF Date of admission: 08/18/25 17:12 Primary Care Provider: Segun,Ben Admitting Provider: Rosetta Oakley Attending physician on admission: Rosetta Oakley Condition: Improved
== END 2025-08-20 13:20 | disposition home or self-care (01) | DRG 322 ==
LOC: ANHICU 08-19 09:46 → ANHIMU 08-20 10:51 → ANHICU 08-22 08:56 → ANHIMU 08-22 08:56
PROVIDERS: Internal Medicine; Admitting Provider Internal Medicine Interventional Cardiology; PCP Family Medicine; Visit Provider Specialist
PROC: 4A023N7 Measurement of Cardiac Sampling and Pressure, Left Heart, Percutaneous Approach (ICD-10-PCS; CPT 93452; principal; 2025-08-18 17:20)
PROC: 027035Z Dilation of Coronary Artery, One Artery with Two Drug-eluting Intraluminal Devices, Percutaneous Approach (ICD-10-PCS; 2025-08-18 17:20)
PROC: 027034Z Dilation of Coronary Artery, One Artery with Drug-eluting Intraluminal Device, Percutaneous Approach (ICD-10-PCS; CPT 92928; 2025-08-18 17:20)
PROC: 027035Z Dilation of Coronary Artery, One Artery with Two Drug-eluting Intraluminal Devices, Percutaneous Approach (ICD-10-PCS; 2025-08-18 17:20)
DX: I21.19 ST elevation (STEMI) myocardial infarction involving other coronary artery of inferior wall (principal); I25.10 Atherosclerotic heart disease of native coronary artery without angina pectoris; R00.1 Bradycardia, unspecified; I95.89 Other hypotension; J44.9 Chronic obstructive pulmonary disease, unspecified; F17.210 Nicotine dependence, cigarettes, uncomplicated; Z95.5 Presence of coronary angioplasty implant and graft; I25.2 Old myocardial infarction
CPT/HCPCS: 36415; 80048; 80053; 83735; 84100; 84484; 85025; 85610; 85730; 87641; 92978; 93458; A9270; C1725; C1753; C1760; C1769; C1874; C1887; C1894; C8929; C9606; G0269; J0461; J1644; J2003; J2250; J3010; J7030; J7040; Q9957